=== PATIENT | female | born 1955 | race African-American/Black ===

== ENCOUNTER 2017-01-17 22:05 | Emergency (ER) | payer OTHER ==
[~2017-01-17] VITALS: Ht 162.6 cm; Wt 58.0 kg
[2017-01-18 03:10] VITALS: BP 116/68
== END 2017-01-18 03:20 | disposition home or self-care (01) ==
LOC: ER 22:06
DX: L60.0 Ingrowing nail (principal); F17.200 Nicotine dependence, unspecified, uncomplicated
CPT/HCPCS: 99283; Z7610